=== PATIENT | male | born 1950 | race Caucasian/White ===

== ENCOUNTER → 2018-04-02 | Outpatient (CLI) | payer MEDICARE, MEDICAID | END | disposition home or self-care (01) | LOC: CT 13:36 | PROVIDERS: ATTEND Psychiatry & Neurology Neurology | DX: I67.82 Cerebral ischemia (principal) | CPT/HCPCS: 70450 ==

== ENCOUNTER 2025-01-08 18:36 | Inpatient (IN) | payer MEDICARE, MEDICAID, OTHER ==
[~2025-01-08] VITALS: Ht 208.3 cm; Wt 74.5 kg
[2025-01-08] MEDS: SODIUM CHLORIDE 0.9% (SEPSIS BOLUS) IV ONE (19:10)
[2025-01-08 19:31] LABS: BASOPHILS % 0.5 % (0.0-2.0); EOSINOPHILS % 8.7 % (0.0-5.0); HEMATOCRIT. 33.7 % (42.0-52.0); HEMOGLOBIN. 11.3 g/dL (14.0-18.0); MEAN CORPUSCULAR HEMOGLOBIN 33.3 pg (28.0-32.0); MEAN CORPUSCULAR HGB CONC 33.4 g/dL (31.0-37.0); MEAN CORPUSCULAR VOLUME 99.7 fL (80.0-94.0); MEAN PLATELET VOLUME 7.3 fl (7.4-10.4); MONOCYTES % 12.9 % (2.0-8.0); NEUTROPHILS % 64.9 % (40.0-76.0); PLATELET 134 x1000/uL (130-400); RED BLOOD CELL COUNT 3.38 mill/uL (4.7-6.1); RED CELL DISTRIBUTION WIDTH 13.2 % (11.6-14.6); WHITE BLOOD COUNT 6.3 x1000/uL (4.5-11.0)
[2025-01-08] MEDS: PIPERACILLIN/TAZO 3.375G/50ML 50 ML IV ONE (19:41)
[2025-01-08 19:43] LABS: CHLORIDE 105 mEq/L (98-107); POTASSIUM 4.4 mEq/L (3.5-5.1); SODIUM 139 mEq/L (136-145)
[2025-01-08 19:44] LABS: CALCIUM 8.2 mg/dL (8.7-10.4); CARBON DIOXIDE 29 mEq/L (21-32)
[2025-01-08 19:49] LABS: CREATININE 1.2 mg/dL (0.6-1.3); GLUCOSE 100 mg/dL (70-105)
[2025-01-08 19:50] LABS: DIFFERENTIAL COMMENT 1; TROPONIN I HIGH SENSITIVITY 7 ng/L (3.0-53); UREA NITROGEN BLOOD 20 mg/dL (9-23)
[2025-01-08 19:51] LABS: ALANINE AMINOTRANSFERASE 450 IU/L (10-49); ALBUMIN 3.3 g/dL (3.2-4.8); ASPARTATE AMINOTRANSFERASE 250 IU/L (<34); BILIRUBIN DIRECT 0.2 mg/dL (<=3.0)
[2025-01-08 19:52] LABS: BILIRUBIN TOTAL 0.6 mg/dL (0.1-1.0); PROTEIN TOTAL 6.1 g/dL (6.0-8.3)
[2025-01-08 19:54] LABS: THYROID STIMULATING HORMONE 3.56 uIU/mL (0.55-4.78)
[2025-01-08 19:57] LABS: INR 1.7; PROTHROMBIN TIME 17.2 sec (9.6-11.0)
[2025-01-08] MEDS: VANCOMYCIN 1G PREMIX 200 ML IV ONE (20:40)
[2025-01-08 21:16] LABS: CLARITY URINE CLEAR (CLEAR); COLOR URINE YELLOW (YELLOW); GLUCOSE URINE NEGATIVE (NEGATIVE); KETONES URINE NEGATIVE (NEGATIVE); LEUKOCYTE ESTERASE URINE NEGATIVE (NEGATIVE); NITRITE URINE NEGATIVE (NEGATIVE); OCCULT BLOOD URINE TRACE (NEGATIVE); PROTEIN URINE NEGATIVE (NEGATIVE); SPECIFIC GRAVITY URINE 1.006 (1.005-1.030); UROBILINOGEN URINE 0.2 E.U./dL (0.2-1.0)
[2025-01-08] MEDS: ASPIRIN 81MG TABLET PO ONE (21:29)
[2025-01-08 21:41] LABS: BACTERIA URINE NONE SEEN; RBC URINE 0-2 /hpf (0-2); SQUAMOUS EPITHELIAL CELL URINE RARE /lpf (RARE/1+); WBC URINE NONE SEEN /hpf (0-2)
[2025-01-08 23:00] VITALS: BP 118/70; PULSE 98; RESP 20; TEMP 36.5
[2025-01-08 23:25] VITALS: BP 118/70; PULSE 98; RESP 22; TEMP 36.4; O2SAT 96
[2025-01-09] MEDS ORDERED: LEVO50TA8 PO
[2025-01-09] MEDS ORDERED: METO-396 PO
[2025-01-09] MEDS ORDERED: RIVA20TA PO
[2025-01-09] MEDS ORDERED: DES150 PO
[2025-01-09] MEDS ORDERED: QUET25TA36 PO
[2025-01-09] MEDS ORDERED: AMAN100T
[2025-01-09] MEDS ORDERED: ATOR40TA70
[2025-01-09] MEDS ORDERED: LEVE750T10 PO
[2025-01-09] MEDS ORDERED: FINA5TAB11
[2025-01-09] MEDS ORDERED: FURO40TA5
[2025-01-09] MEDS ORDERED: IPRATROPIUM/ALBUTEROL 0.5-3(2.5)MG/3ML NEB NEB PRN (00:15)
[2025-01-09] MEDS ORDERED: ACETAMINOPHEN 325MG TABLET PO PRN (00:15)
[2025-01-09] MEDS ORDERED: CLONIDINE 0.1MG TABLET PO PRN (00:15)
[2025-01-09] MEDS ORDERED: MAGNESIUM/ALUMINUM HYDROXIDE/SIMETHICONE 30ML UDC PO PRN (00:15)
[2025-01-09] MEDS ORDERED: ONDANSETRON HCL 4MG/2ML INJ IV PRN (00:15)
[2025-01-09] MEDS: QUETIAPINE FUMARATE 50MG TABLET PO NR (00:35)
[2025-01-09] MEDS: LORAZEPAM 2MG/ML INJ IV PRN (00:35)
[2025-01-09] MEDS ORDERED: QUET50TA23 (02:23)
[2025-01-09] MEDS ORDERED: D-ME473S50 PO (02:23)
[2025-01-09] MEDS ORDERED: QUET100T34 (02:23)
[2025-01-09 04:00] VITALS: BP 98/62; PULSE 96; RESP 22; TEMP 36.3; O2SAT 97
[2025-01-09] MEDS: LEVOTHYROXINE SODIUM 50MCG TABLET PO SCH (07:36)
[2025-01-09 08:00] VITALS: BP 110/68; PULSE 90; RESP 19; TEMP 36.8; O2SAT 96
[2025-01-09 08:19] LABS: TROPONIN I HIGH SENSITIVITY 11 ng/L (3.0-53)
[2025-01-09] MEDS: RIVAROXABAN 20 MG TABLET PO SCH (08:27)
[2025-01-09] MEDS: AMANTADINE 100MG CAPSULE PO SCH (08:27)
[2025-01-09] MEDS: LEVETIRACETAM 500MG/5ML CUP PO SCH (08:27)
[2025-01-09] MEDS: PANTOPRAZOLE SODIUM 40 MG/VIAL IV SCH (08:27)
[2025-01-09] MEDS: QUETIAPINE FUMARATE 25MG TABLET PO SCH (08:27)
[2025-01-09] MEDS: METOPROLOL SUCCINATE 25MG ER TABLET PO SCH (08:28)
[2025-01-09] MEDS: FINASTERIDE 5MG TABLET PO SCH (08:28)
[2025-01-09] MEDS: FUROSEMIDE 40MG TABLET PO SCH (08:28)
[2025-01-09] MEDS ORDERED: DIPH25TA23 PO (10:57)
[2025-01-09] MEDS ORDERED: CLOT30LO3 TP (10:57)
[2025-01-09] MEDS ORDERED: LORA-249 PO (10:57)
[2025-01-09] MEDS ORDERED: LACT10SO81 PO (10:57)
[2025-01-09] MEDS ORDERED: POTA8CAP20 PO (10:57)
[2025-01-09] MEDS ORDERED: HALO5TAB PO (10:57)
[2025-01-09] MEDS ORDERED: DOCU-422 PO (10:57)
[2025-01-09] MEDS ORDERED: FERR325T6 PO (10:57)
[2025-01-09] MEDS ORDERED: MELA3TAB42 PO (10:57)
[2025-01-09 12:00] VITALS: BP 113/75; PULSE 96; RESP 19; TEMP 36.6; O2SAT 97
[2025-01-09 16:00] VITALS: BP 108/75; PULSE 92; RESP 19; TEMP 36.5; O2SAT 96
[2025-01-09 17:17] LABS: TROPONIN I HIGH SENSITIVITY 6 ng/L (3.0-53)
[2025-01-09 20:00] VITALS: BP 123/76; PULSE 111; RESP 18; TEMP 36.4; O2SAT 95
[2025-01-09] MEDS: TRAZODONE HCL 50MG TABLET PO SCH (20:49)
[2025-01-09] MEDS: ATORVASTATIN CALCIUM 40MG TABLET PO SCH (20:50)
[2025-01-09] MEDS: ZOLPIDEM TARTRATE 5MG TABLET PO PRN (22:42)
[2025-01-10] VITALS: BP 125/95; PULSE 133; RESP 19; TEMP 36.3; O2SAT 95
[2025-01-10 04:00] VITALS: BP 115/79; PULSE 108; RESP 18; TEMP 36.1; O2SAT 97
[2025-01-10 07:29] LABS: CARBON DIOXIDE 29 mEq/L (21-32); CHLORIDE 105 mEq/L (98-107); POTASSIUM 3.6 mEq/L (3.5-5.1); SODIUM 141 mEq/L (136-145)
[2025-01-10 07:31] LABS: CALCIUM 8.5 mg/dL (8.7-10.4)
[2025-01-10 07:35] LABS: BASOPHILS % 0.4 % (0.0-2.0); CREATININE 0.9 mg/dL (0.6-1.3); DIFFERENTIAL COMMENT 0; EOSINOPHILS % 7.8 % (0.0-5.0); GLUCOSE 94 mg/dL (70-105); HEMATOCRIT. 34.2 % (42.0-52.0); HEMOGLOBIN. 11.8 g/dL (14.0-18.0); LYMPHOCYTES % 10.5 % (20.0-50.0); MEAN CORPUSCULAR HEMOGLOBIN 34.7 pg (28.0-32.0); MEAN CORPUSCULAR HGB CONC 34.5 g/dL (31.0-37.0); MEAN CORPUSCULAR VOLUME 100.7 fL (80.0-94.0); MONOCYTES % 8.5 % (2.0-8.0); NEUTROPHILS % 72.8 % (40.0-76.0); PLATELET 145 x1000/uL (130-400); RED CELL DISTRIBUTION WIDTH 13.1 % (11.6-14.6); UREA NITROGEN BLOOD 13 mg/dL (9-23); WHITE BLOOD COUNT 7.1 x1000/uL (4.5-11.0)
[2025-01-10 08:00] VITALS: BP 129/81; PULSE 89; RESP 19; TEMP 36.7; O2SAT 96
[2025-01-10 12:00] VITALS: BP 131/73; PULSE 81; RESP 19; TEMP 36.8; O2SAT 96
[2025-01-10] MEDS: HALOPERIDOL LACTATE 5MG/ML VIAL IM NR (12:29)
[2025-01-10 16:00] VITALS: BP 130/70; PULSE 88; RESP 17; TEMP 36.8; O2SAT 96
[2025-01-10] MEDS: LORAZEPAM 2MG/ML INJ IM PRN (23:47)
[2025-01-11] VITALS: BP 116/74; PULSE 98; RESP 18; TEMP 36.3
[2025-01-11] MEDS ORDERED: HALOPERIDOL LACTATE 5MG/ML VIAL IM PRN (00:30)
[2025-01-11 04:00] VITALS: BP 124/90; PULSE 66; RESP 18; TEMP 36.4; O2SAT 99
[2025-01-11 08:00] VITALS: BP 132/95; PULSE 68; RESP 19; TEMP 36.4; O2SAT 99
[2025-01-11 08:19] LABS: BASOPHILS % 0.5 % (0.0-2.0); EOSINOPHILS % 11.8 % (0.0-5.0); HEMOGLOBIN. 13.3 g/dL (14.0-18.0); MEAN CORPUSCULAR HEMOGLOBIN 35.1 pg (28.0-32.0); MEAN CORPUSCULAR HGB CONC 34.1 g/dL (31.0-37.0); MEAN CORPUSCULAR VOLUME 102.9 fL (80.0-94.0); MEAN PLATELET VOLUME 7.8 fl (7.4-10.4); MONOCYTES % 11.9 % (2.0-8.0); NEUTROPHILS % 62.8 % (40.0-76.0); PLATELET 156 x1000/uL (130-400); RED BLOOD CELL COUNT 3.79 mill/uL (4.7-6.1); RED CELL DISTRIBUTION WIDTH 12.5 % (11.6-14.6); WHITE BLOOD COUNT 7.1 x1000/uL (4.5-11.0)
[2025-01-11 08:31] LABS: DIFFERENTIAL COMMENT 1
[2025-01-11 08:41] LABS: CHLORIDE 104 mEq/L (98-107); POTASSIUM 3.7 mEq/L (3.5-5.1); SODIUM 139 mEq/L (136-145)
[2025-01-11 08:42] LABS: CARBON DIOXIDE 27 mEq/L (21-32)
[2025-01-11 08:43] LABS: CALCIUM 9.1 mg/dL (8.7-10.4)
[2025-01-11 08:47] LABS: CREATININE 0.9 mg/dL (0.6-1.3); GLUCOSE 83 mg/dL (70-105); UREA NITROGEN BLOOD 13 mg/dL (9-23)
[2025-01-11 12:00] VITALS: BP 130/89; PULSE 78; RESP 19; TEMP 36.7; O2SAT 99
[2025-01-11 16:00] VITALS: BP 125/86; PULSE 68; RESP 19; TEMP 36.6; O2SAT 99
[2025-01-11 20:00] VITALS: BP 124/85; PULSE 88; RESP 18; TEMP 36.6; O2SAT 99
[2025-01-11] MEDS ORDERED: NALOXONE HCL 0.4MG/ML VIAL IV PRN (22:45)
[2025-01-12 04:00] VITALS: BP 113/71; PULSE 98; RESP 18; TEMP 36.5; O2SAT 98
[2025-01-12 07:00] LABS: CARBON DIOXIDE 31 mEq/L (21-32); CHLORIDE 102 mEq/L (98-107); POTASSIUM 3.7 mEq/L (3.5-5.1); SODIUM 140 mEq/L (136-145)
[2025-01-12 07:06] LABS: CREATININE 1.1 mg/dL (0.6-1.3); GLUCOSE 106 mg/dL (70-105); UREA NITROGEN BLOOD 22 mg/dL (9-23)
[2025-01-12 07:34] LABS: BASOPHILS % 0.9 % (0.0-2.0); DIFFERENTIAL COMMENT 0; EOSINOPHILS % 11.3 % (0.0-5.0); HEMATOCRIT. 41.6 % (42.0-52.0); HEMOGLOBIN. 14.1 g/dL (14.0-18.0); LYMPHOCYTES % 14.7 % (20.0-50.0); MEAN CORPUSCULAR HEMOGLOBIN 34.2 pg (28.0-32.0); MEAN CORPUSCULAR VOLUME 100.3 fL (80.0-94.0); MEAN PLATELET VOLUME 7.7 fl (7.4-10.4); MONOCYTES % 11.1 % (2.0-8.0); PLATELET 195 x1000/uL (130-400); RED BLOOD CELL COUNT 4.14 mill/uL (4.7-6.1); RED CELL DISTRIBUTION WIDTH 13.1 % (11.6-14.6); WHITE BLOOD COUNT 6.7 x1000/uL (4.5-11.0)
[2025-01-12 08:30] VITALS: BP 150/98; PULSE 83; RESP 20; TEMP 36.7; O2SAT 94
[2025-01-12] MEDS: FAMOTIDINE 20MG TABLET PO SCH (09:20)
[2025-01-12] MEDS: QUETIAPINE FUMARATE 50MG TABLET PO SCH (09:21)
[2025-01-12] MEDS: HYDROCODONE/ACETAMINOPHEN 5/325MG TABLET PO PRN (10:40)
[2025-01-12 16:18] VITALS: BP 152/92; PULSE 93; RESP 20; TEMP 37; O2SAT 98
[2025-01-12] MEDS: RIVAROXABAN 20 MG TABLET PO SCH (18:28)
[2025-01-12 20:00] VITALS: BP 137/76; PULSE 65; RESP 18; TEMP 36.8; O2SAT 95
[2025-01-13] VITALS: BP 120/87; PULSE 88; RESP 18; TEMP 36.9; O2SAT 97
[2025-01-13 04:00] VITALS: BP 137/68; PULSE 85; RESP 19; TEMP 36.5; O2SAT 96
[2025-01-13 08:00] VITALS: BP 122/80; PULSE 66; RESP 20; TEMP 36.7; O2SAT 98
[2025-01-13 12:00] VITALS: BP 117/74; PULSE 82; RESP 20; TEMP 36.6; O2SAT 98
[2025-01-13 16:00] VITALS: BP 122/88; PULSE 94; RESP 20; TEMP 36.6; O2SAT 97
[2025-01-13 20:00] VITALS: BP 101/62; PULSE 78; RESP 18; TEMP 36.3; O2SAT 100
[2025-01-14] VITALS: BP 121/71; PULSE 105; RESP 18; TEMP 36.3; O2SAT 97
[2025-01-14 04:00] VITALS: BP 116/81; RESP 19; TEMP 36.3; O2SAT 97
[2025-01-14 08:00] VITALS: BP 126/84; RESP 16; TEMP 36.4; O2SAT 98
[2025-01-14 10:51] VITALS: BP 126/84; PULSE 68; TEMP 97.6; O2SAT 98
== END 2025-01-14 11:36 | disposition home or self-care (01) | DRG 871 ==
LOC: ER 18:36 → 6WST 20:38 → 7EST 01-10 17:38
PROVIDERS: ADMIT Internal Medicine; ATTEND Internal Medicine
DX: A41.9 Sepsis, unspecified organism (principal); G82.50 Quadriplegia, unspecified; G93.41 Metabolic encephalopathy; F84.0 Autistic disorder; C44.90 Unspecified malignant neoplasm of skin, unspecified; D64.9 Anemia, unspecified; E03.9 Hypothyroidism, unspecified; F79 Unspecified intellectual disabilities; Z20.822 Contact with and (suspected) exposure to COVID-19; G40.909 Epilepsy, unspecified, not intractable, without status epilepticus; I11.0 Hypertensive heart disease with heart failure; I48.91 Unspecified atrial fibrillation; I50.9 Heart failure, unspecified; Z85.828 Personal history of other malignant neoplasm of skin; Z79.01 Long term (current) use of anticoagulants
CPT/HCPCS: 36415; 70551; 71045; 76700; 80048; 80076; 81003; 83605; 83880; 84145; 84443; 84484; 85025; 87426; 92610; 93005; 93306; 97165; 99285; A4606; C1893; J1630; J2060; J2470; J2543; J3370

== ENCOUNTER 2025-02-28 16:58 | Emergency (ER) | payer MEDICARE, MEDICAID ==
[~2025-02-28] VITALS: Ht 165.1 cm; Wt 54.0 kg
[~2025-02-28 16:58] MED LIST: AMAN100T; ATOR40TA70; CLOT30LO3 TP; D-ME473S50 PO; DES150 PO; DIPH25TA23 PO; DOCU-422 PO; FERR325T6 PO; FINA5TAB11; FURO40TA5; HALO5TAB PO; LACT10SO81 PO; LEVE750T10 PO; LEVO50TA8 PO; LORA-249 PO; MELA3TAB42 PO; METO-396 PO; POTA8CAP20 PO; QUET100T34; QUET25TA36 PO; QUET50TA23; RIVA20TA PO
[2025-02-28 17:03] VITALS: TEMP 36.9; O2SAT 98
[2025-02-28 20:39] VITALS: BP 137/68; PULSE 68; RESP 20; O2SAT 94
== END 2025-02-28 20:46 | disposition home or self-care (01) ==
LOC: ER 17:50
DX: S90.02XA Contusion of left ankle, initial encounter (principal); S90.512A Abrasion, left ankle, initial encounter; I10 Essential (primary) hypertension; E03.9 Hypothyroidism, unspecified; G40.909 Epilepsy, unspecified, not intractable, without status epilepticus; Z79.899 Other long term (current) drug therapy; Z79.01 Long term (current) use of anticoagulants; W18.30XA Fall on same level, unspecified, initial encounter; Y93.89 Activity, other specified; Y92.89 Other specified places as the place of occurrence of the external cause; Y99.8 Other external cause status
CPT/HCPCS: 73610; 99284